=== PATIENT | female | born 1970 | race Two or more races ===

== ENCOUNTER 2021-05-26 12:11 | Outpatient (REF) | payer OTHER, SELFPAY | END 2021-05-26 12:12 | disposition home or self-care (01) | LOC: HO.LAB 12:11 | PROVIDERS: PCP Internal Medicine; Visit Provider Internal Medicine | DX: Z20.822 Contact with and (suspected) exposure to COVID-19 (principal) | CPT/HCPCS: U0003; U0005 ==

== ENCOUNTER 2021-08-31 08:51 | Outpatient (REF) | payer OTHER, SELFPAY ==
--- NOTE | ~2021-08-31 | XR_ITS ---
EXAMINATION: BILATERAL KNEE X-RAY CLINICAL INFORMATION: Bilateral knee pain COMPARISON: None TECHNIQUE: 2 views of each knee FINDINGS: Right: Bone alignment is normal. No fracture or dislocation is seen. Joint spaces are normal. There is a small osteophyte at the quadriceps tendon insertion to the patella. Left knee: Bone alignment is normal. No fracture or dislocation is seen. Joint spaces are normal. There is no joint effusion. XR/XR knee LT 2V IMPRESSION: Right knee: Small osteophyte at the quadriceps tendon insertion to the patella otherwise unremarkable exam. Left knee: Unremarkable exam.
--- NOTE | ~2021-08-31 | XR_ITS ---
EXAMINATION: BILATERAL KNEE X-RAY CLINICAL INFORMATION: Bilateral knee pain COMPARISON: None TECHNIQUE: 2 views of each knee FINDINGS: Right: Bone alignment is normal. No fracture or dislocation is seen. Joint spaces are normal. There is a small osteophyte at the quadriceps tendon insertion to the patella. Left knee: Bone alignment is normal. No fracture or dislocation is seen. Joint spaces are normal. There is no joint effusion. XR/XR knee RT 2V IMPRESSION: Right knee: Small osteophyte at the quadriceps tendon insertion to the patella otherwise unremarkable exam. Left knee: Unremarkable exam.
--- NOTE | ~2021-08-31 | XR_ITS ---
EXAMINATION: XR CHEST CLINICAL INFORMATION: Chest pain COMPARISON: None TECHNIQUE: 2 views of the chest were obtained. FINDINGS: The cardiac and mediastinal contours are normal. The lungs are clear. There is no pleural effusion or pneumothorax. There are mild degenerative changes of the spine. XR/XR chest 2V IMPRESSION: Unremarkable examination.
[2021-08-31 09:09] LABS: MANUAL DIFF FLAG NO
[2021-08-31 09:36] LABS: Basophils Percent Auto 0.4 % (0-2); Eosinophils Absolute Auto 0.3 X10*3/uL (0.0-0.4); Eosinophils Percent Auto 3.1 % (0-4); Hematocrit 38.2 % (37.0-47.0); Hemoglobin 12.2 g/dl (12.0-16.0); Imm Gran Abs Auto 0.02 X10*3/uL (0.00-0.03); Imm Gran Pct Auto 0.2 % (0.0-0.4); Lymphocytes Absolute Auto 2.7 X10*3/uL (1.2-4.9); Lymphocytes Percent Auto 29.8 % (20-40); Mean Corpuscular HGB Conc 31.9 g/dl (31.0-35.0); Mean Corpuscular Hemoglobin 25.1 pg (27.0-33.0); Mean Corpuscular Volume 78.6 fL (80.0-98.0); Monocytes Absolute Auto 0.6 X10*3/uL (0.1-1.2); Monocytes Percent Auto 6.7 % (2-11); Neutrophils Absolute Auto 5.4 x10*3/uL (2.0-8.3); Neutrophils Percent Auto 59.8 % (45-73); Platelet Count 343 X10*3/uL (160-400); Red Blood Count 4.86 X10*6/uL (4.20-5.50); Red Cell Distribution Width 13.2 % (11.0-16.0); White Blood Count 9.1 X10*3/uL (4.8-10.8)
[2021-08-31 09:40] LABS: Alanine Aminotransferase 19 U/L (0-31); Albumin Level 4.6 g/dL (3.5-5.0); Alkaline Phosphatase 91 U/L (39-117); Anion Gap 13 (12-20); Aspartate Amino Transferase 22 U/L (5-31); Bilirubin Total 0.4 mg/dL (0.0-1.0); Blood Urea Nitrogen 9 mg/dL (9-16); Calcium 9.7 mg/dL (8.4-10.2); Carbon Dioxide 26 mmol/L (22-29); Chloride 109 mmol/L (96-108); Cholesterol 214 mg/dL; Estimated Glomerular Filt Rate > 60; Glucose Fasting 109 mg/dL (60-99); HDL Cholesterol 45 mg/dL; LDL Cholesterol Calculated 148 mg/dl; Potassium 3.7 mmol/L (3.3-5.1); Sodium 144 mmol/L (135-145); Total Protein 7.4 g/dL (6.5-8.0); Triglycerides 108 mg/dL
[2021-08-31 09:53] LABS: Estimated Average Glucose 120 mg/dL; Hemoglobin A1c % 5.8 %
[2021-08-31 12:37] LABS: Creatinine Urine 110.13 mg/dL
[2021-08-31 12:43] LABS: Microalbum/Creatinine Ratio Ur 83.5 ug/mg cr
[2021-09-04 12:41] LABS: Vitamin D 25-OH, D2 <4 ng/mL; Vitamin D 25-OH, D3 17 ng/mL; Vitamin D 25-OH, Total 17 ng/mL (30-100)
== END 2021-08-31 08:52 | disposition home or self-care (01) ==
LOC: HO.LAB 08:51
PROVIDERS: Nurse Practitioner Family; Visit Provider Internal Medicine
DX: R07.89 Other chest pain (principal); M25.562 Pain in left knee; M25.561 Pain in right knee; D64.9 Anemia, unspecified; E11.610 Type 2 diabetes mellitus with diabetic neuropathic arthropathy; E78.5 Hyperlipidemia, unspecified; E55.9 Vitamin D deficiency, unspecified
CPT/HCPCS: 36415; 71046; 73560; 80053; 80061; 82043; 82306; 83036; 85025

== ENCOUNTER 2021-12-21 09:17 | Outpatient (REF) | payer OTHER, SELFPAY ==
--- NOTE | 2021-12-21 09:22 | ECG_ITS ---
Test Reason : R07.9 Blood Pressure : / mmHG Vent. Rate : 073 BPM Atrial Rate : 073 BPM P-R Int : 134 ms QRS Dur : 088 ms QT Int : 382 ms P-R-T Axes : 055 046 031 degrees QTc Int : 420 ms Normal sinus rhythm Normal ECG No previous ECGs available Referred By: Desiree Greene Electronically Signed By:Darrell Guerrier
[2021-12-21 10:55] LABS: Alanine Aminotransferase 27 U/L (0-31); Albumin Level 4.7 g/dL (3.5-5.0); Alkaline Phosphatase 105 U/L (39-117); Anion Gap 12 (12-20); Aspartate Amino Transferase 25 U/L (5-31); Bilirubin Total 0.3 mg/dL (0.0-1.0); Blood Urea Nitrogen 14 mg/dL (9-16); Calcium 10.1 mg/dL (8.4-10.2); Carbon Dioxide 28 mmol/L (22-29); Chloride 108 mmol/L (96-108); Cholesterol 159 mg/dL; Estimated Glomerular Filt Rate > 60; Glucose Fasting 108 mg/dL (60-99); HDL Cholesterol 39 mg/dL; LDL Cholesterol Calculated 101 mg/dl; Potassium 4.4 mmol/L (3.3-5.1); Sodium 144 mmol/L (135-145); Total Protein 7.7 g/dL (6.5-8.0); Triglycerides 98 mg/dL
[2021-12-21 11:20] LABS: Creatinine Urine 146.52 mg/dL; Microalbum/Creatinine Ratio Ur 13.6 ug/mg cr
[2021-12-25 15:32] LABS: Vitamin D 25-OH, D2 <4 ng/mL; Vitamin D 25-OH, D3 23 ng/mL; Vitamin D 25-OH, Total 23 ng/mL (30-100)
== END 2021-12-21 09:18 | disposition home or self-care (01) ==
LOC: HO.LAB 09:17
PROVIDERS: PCP Internal Medicine; Visit Provider Internal Medicine
DX: E11.610 Type 2 diabetes mellitus with diabetic neuropathic arthropathy (principal); R07.9 Chest pain, unspecified; E55.9 Vitamin D deficiency, unspecified; E78.5 Hyperlipidemia, unspecified
CPT/HCPCS: 36415; 80053; 80061; 82043; 82306; 93005

== ENCOUNTER 2022-05-16 09:25 | Outpatient (REF) | payer OTHER, SELFPAY ==
[2022-05-16 11:28] LABS: Alanine Aminotransferase 24 U/L (0-31); Albumin Level 4.5 g/dL (3.5-5.0); Alkaline Phosphatase 126 U/L (39-117); Anion Gap 12 (12-20); Aspartate Amino Transferase 21 U/L (5-31); Bilirubin Total 0.4 mg/dL (0.0-1.0); Blood Urea Nitrogen 14 mg/dL (9-16); Calcium 9.5 mg/dL (8.4-10.2); Carbon Dioxide 28 mmol/L (22-29); Chloride 106 mmol/L (96-108); Cholesterol 161 mg/dL; Estimated Glomerular Filt Rate > 60; Glucose Fasting 129 mg/dL (60-99); HDL Cholesterol 42 mg/dL; LDL Cholesterol Calculated 87 mg/dl; Potassium 4.1 mmol/L (3.3-5.1); Sodium 142 mmol/L (135-145); Total Protein 7.1 g/dL (6.5-8.0); Triglycerides 160 mg/dL
[2022-05-16 11:41] LABS: Creatinine Urine 132.06 mg/dL; Microalbum/Creatinine Ratio Ur 10.6 ug/mg cr
[2022-05-16 11:52] LABS: Vitamin D 25-OH Total 36.5 ng/mL (>30)
== END 2022-05-16 09:26 | disposition home or self-care (01) ==
LOC: HO.LAB 09:25
PROVIDERS: PCP Internal Medicine; Visit Provider Internal Medicine
DX: E11.610 Type 2 diabetes mellitus with diabetic neuropathic arthropathy (principal); E78.5 Hyperlipidemia, unspecified; E55.9 Vitamin D deficiency, unspecified
CPT/HCPCS: 36415; 80053; 80061; 82043; 82306

== ENCOUNTER 2022-09-06 11:10 | Outpatient (REF) | payer OTHER, SELFPAY ==
[2022-09-06 12:36] LABS: Creatinine Urine 186.41 mg/dL; Microalbum/Creatinine Ratio Ur 11.8 ug/mg cr
[2022-09-06 13:03] LABS: Alanine Aminotransferase 27 U/L (0-31); Albumin Level 4.5 g/dL (3.5-5.0); Alkaline Phosphatase 109 U/L (39-117); Anion Gap 12 (12-20); Aspartate Amino Transferase 20 U/L (5-31); Bilirubin Total 0.7 mg/dL (0.0-1.0); Blood Urea Nitrogen 10 mg/dL (9-16); Calcium 9.6 mg/dL (8.4-10.2); Carbon Dioxide 28 mmol/L (22-29); Chloride 106 mmol/L (96-108); Cholesterol 152 mg/dL; Estimated Glomerular Filt Rate > 60; Glucose Fasting 111 mg/dL (60-99); HDL Cholesterol 32 mg/dL; LDL Cholesterol Calculated 90 mg/dl; Potassium 4.1 mmol/L (3.3-5.1); Sodium 142 mmol/L (135-145); Total Protein 6.9 g/dL (6.5-8.0); Triglycerides 151 mg/dL; Vitamin D 25-OH Total 34.8 ng/mL (>30)
== END 2022-09-06 11:11 | disposition home or self-care (01) ==
LOC: HO.LAB 11:10
PROVIDERS: PCP Internal Medicine; Visit Provider Internal Medicine
DX: E78.5 Hyperlipidemia, unspecified (principal); E55.9 Vitamin D deficiency, unspecified; E11.610 Type 2 diabetes mellitus with diabetic neuropathic arthropathy
CPT/HCPCS: 36415; 80053; 80061; 82043; 82306

== ENCOUNTER 2022-09-20 09:56 | Outpatient (REF) | payer OTHER, SELFPAY ==
--- NOTE | ~2022-09-20 | XR_ITS ---
EXAMINATION: XR BILATERAL AP KNEE STANDING XR RIGHT KNEE XR LEFT KNEE CLINICAL INFORMATION: Bilateral primary osteoarthritis of knee. COMPARISON: None TECHNIQUE: Bilateral AP knee standing. 3 views each knee. FINDINGS: BILATERAL AP KNEE STANDING: There is maintained medial and lateral compartment joint space without bony erosive changes. No loose bodies seen. The soft tissues are normal. RIGHT KNEE: Minimal reduction the patellofemoral compartment joint space with anterior superior patellar enthesophyte is noted. No loose bodies, abnormal spur, joint effusion or bony erosive changes seen. LEFT KNEE: There is loss of patellofemoral compartment joint space. The medial and lateral compartment joint space is preserved. No bony erosive changes, loose bodies or joint effusion seen. The soft tissues are normal. XR/XR knee RT 3V IMPRESSION: 1. Mild degenerative changes patellofemoral compartment both knees. No visible acute fracture, dislocation or subluxation seen. 2. There is anterior superior patellar enthesophyte right knee.
--- NOTE | ~2022-09-20 | XR_ITS ---
EXAMINATION: XR BILATERAL AP KNEE STANDING XR RIGHT KNEE XR LEFT KNEE CLINICAL INFORMATION: Bilateral primary osteoarthritis of knee. COMPARISON: None TECHNIQUE: Bilateral AP knee standing. 3 views each knee. FINDINGS: BILATERAL AP KNEE STANDING: There is maintained medial and lateral compartment joint space without bony erosive changes. No loose bodies seen. The soft tissues are normal. RIGHT KNEE: Minimal reduction the patellofemoral compartment joint space with anterior superior patellar enthesophyte is noted. No loose bodies, abnormal spur, joint effusion or bony erosive changes seen. LEFT KNEE: There is loss of patellofemoral compartment joint space. The medial and lateral compartment joint space is preserved. No bony erosive changes, loose bodies or joint effusion seen. The soft tissues are normal. XR/XR knee standing BI IMPRESSION: 1. Mild degenerative changes patellofemoral compartment both knees. No visible acute fracture, dislocation or subluxation seen. 2. There is anterior superior patellar enthesophyte right knee.
--- NOTE | ~2022-09-20 | XR_ITS ---
EXAMINATION: XR BILATERAL AP KNEE STANDING XR RIGHT KNEE XR LEFT KNEE CLINICAL INFORMATION: Bilateral primary osteoarthritis of knee. COMPARISON: None TECHNIQUE: Bilateral AP knee standing. 3 views each knee. FINDINGS: BILATERAL AP KNEE STANDING: There is maintained medial and lateral compartment joint space without bony erosive changes. No loose bodies seen. The soft tissues are normal. RIGHT KNEE: Minimal reduction the patellofemoral compartment joint space with anterior superior patellar enthesophyte is noted. No loose bodies, abnormal spur, joint effusion or bony erosive changes seen. LEFT KNEE: There is loss of patellofemoral compartment joint space. The medial and lateral compartment joint space is preserved. No bony erosive changes, loose bodies or joint effusion seen. The soft tissues are normal. XR/XR knee LT 3V IMPRESSION: 1. Mild degenerative changes patellofemoral compartment both knees. No visible acute fracture, dislocation or subluxation seen. 2. There is anterior superior patellar enthesophyte right knee.
== END 2022-09-20 09:57 | disposition home or self-care (01) ==
LOC: HO.XRAY 09:56
PROVIDERS: PCP Internal Medicine; Referring Provider Internal Medicine; Visit Provider Student in an Organized Health Care Education/Training Program
DX: M17.0 Bilateral primary osteoarthritis of knee (principal)
CPT/HCPCS: 73562; 73564; 73565; 99202

== ENCOUNTER → 2022-10-31 10:46 | Outpatient (BNVA) | payer OTHER, SELFPAY | PROVIDERS: PCP Internal Medicine; Visit Provider Student in an Organized Health Care Education/Training Program | DX: M17.0 Bilateral primary osteoarthritis of knee (principal); M79.7 Fibromyalgia | CPT/HCPCS: 99212 ==

== ENCOUNTER 2023-04-25 14:16 | Outpatient (REF) | payer OTHER, SELFPAY ==
--- NOTE | ~2023-04-25 | MM_ITS ---
EXAMINATION: MM SCREENING DIGITAL BREAST TOMOSYNTHESIS, BILATERAL CLINICAL INFORMATION: Screening. Asymptomatic. The lifetime risk of breast cancer based on the Tyrer-Cuzick Model is 9.9%. COMPARISON: Mammography: This study is compared with prior exams dating back to TECHNIQUE: Digital breast tomosynthesis is performed in both the craniocaudal and mediolateral oblique views along with computer-aided detection (CAD). Synthesized 2D images are generated from the tomosynthesis. FINDINGS: There are scattered areas of fibroglandular density (ACR BI-RADS breast composition Category b). There are grouped calcifications in the posterior nipple line the right breast. These occur in the anterior half of the breast. In the left breast, there are no significant masses, abnormal calcifications, or other abnormalities. MM/MM tomosynthesis screening BI IMPRESSION: Calcifications of the right breast warrant additional mammographic imaging magnification. No mammographic signs of malignancy left breast. ASSESSMENT: BI-RADS BI-RADS 0 - Incomplete: Needs additional Imaging. RECOMMENDATION: Additional views of the right breast Radiology department staff will contact the patient for additional imaging. Additional Imaging required This examination should not preclude the clinical evaluation of a suspicious palpable abnormality. This patient's information was entered into a reminder system with a target due date for their next mammogram.
== END 2023-04-25 14:17 | disposition home or self-care (01) ==
LOC: HO.MAMMO 14:16
PROVIDERS: Visit Provider Internal Medicine
DX: Z12.31 Encounter for screening mammogram for malignant neoplasm of breast (principal)
CPT/HCPCS: 77063; 77067

== ENCOUNTER → 2023-04-25 14:45 | Outpatient (BNV) | payer OTHER, SELFPAY | PROVIDERS: Visit Provider Radiology Diagnostic Radiology | DX: Z12.31 Encounter for screening mammogram for malignant neoplasm of breast (principal) | CPT/HCPCS: 77063; 77067 ==

== ENCOUNTER 2023-05-04 09:54 | Outpatient (REF) | payer OTHER, SELFPAY ==
[2023-05-04 11:36] LABS: Alanine Aminotransferase 21 U/L (0-31); Albumin Level 4.5 g/dL (3.5-5.0); Alkaline Phosphatase 90 U/L (39-117); Anion Gap 11 (12-20); Aspartate Amino Transferase 22 U/L (5-31); Bilirubin Total 0.7 mg/dL (0.0-1.0); Blood Urea Nitrogen 9 mg/dL (9-16); Calcium 9.8 mg/dL (8.4-10.2); Carbon Dioxide 29 mmol/L (22-29); Chloride 106 mmol/L (96-108); Cholesterol 139 mg/dL; Estimated Glomerular Filt Rate > 60; Glucose Fasting 113 mg/dL (60-99); HDL Cholesterol 46 mg/dL; LDL Cholesterol Calculated 77 mg/dl; Potassium 4.1 mmol/L (3.3-5.1); Sodium 142 mmol/L (135-145); Total Protein 7.3 g/dL (6.5-8.0); Triglycerides 82 mg/dL
[2023-05-04 11:51] LABS: Vitamin D 25-OH Total 24.4 ng/mL (>30)
[2023-05-04 12:06] LABS: Creatinine Urine 220.18 mg/dL; Microalbum/Creatinine Ratio Ur 9.9 ug/mg cr
== END 2023-05-04 09:55 | disposition home or self-care (01) ==
LOC: HO.LAB 09:54
PROVIDERS: PCP Internal Medicine; Visit Provider Internal Medicine
DX: E78.5 Hyperlipidemia, unspecified (principal); E11.9 Type 2 diabetes mellitus without complications; E55.9 Vitamin D deficiency, unspecified
CPT/HCPCS: 36415; 80053; 80061; 82043; 82306

== ENCOUNTER 2023-06-13 08:53 | Outpatient (REF) | payer OTHER, SELFPAY ==
--- NOTE | ~2023-06-13 | MM_ITS ---
EXAMINATION: MM DIAGNOSTIC DIGITAL MAMMOGRAPHY, RIGHT CLINICAL INFORMATION: Diagnostic follow-up for calcifications seen right breast, upper slightly inner quadrant, middle one third. COMPARISON: Mammography: 04/25/2023. 04/02/2020, 02/03/2019, 04/02/2017. TECHNIQUE: Digital mammography is performed in spot magnification right CC and ML views along with computer-aided detection (CAD). FINDINGS: There are scattered areas of fibroglandular density (ACR BI-RADS breast composition Category b). Within the central one third, slightly upper, slightly medial aspect right breast, there are loosely grouped predominantly punctate calcifications without significant pleomorphism, branching, or casting. These have a probably benign morphology, and 6 month interval follow-up right breast magnification views recommended to ensure stability. Results were provided to the patient at time of visit by the technologist. MM/MM diagnostic mammo unilat RT IMPRESSION: Probably benign right breast calcifications as detailed, for which six-month interval follow-up right breast magnification views are recommended. ASSESSMENT: BI-RADS BI-RADS 3 - Probably benign finding(s) - 6 month follow-up suggested RECOMMENDATION: 6 Month F/U This patient's information was entered into a reminder system with a target due date for their next mammogram.
== END 2023-06-13 08:54 | disposition home or self-care (01) ==
LOC: HO.MAMMO 08:53
PROVIDERS: Visit Provider Internal Medicine
DX: R92.1 Mammographic calcification found on diagnostic imaging of breast (principal)
CPT/HCPCS: 77062; 77065

== ENCOUNTER → 2023-06-13 09:00 | Outpatient (BNV) | payer OTHER, SELFPAY | PROVIDERS: Visit Provider Radiology Diagnostic Radiology | DX: R92.1 Mammographic calcification found on diagnostic imaging of breast (principal) | CPT/HCPCS: 77065 ==

== ENCOUNTER 2023-07-05 09:51 | Outpatient (AMB) | payer OTHER, SELFPAY ==
--- NOTE | 2023-07-05 09:59 | MHC.OFFVIS ---
Intake Vital Signs 07/05/23 10:01 Height 5 ft 3 in Weight 163 lb 12.855 oz BMI 29.0 BP 116/68 Blood Pressure Location Rt brachial Position Sitting Pulse 65 Pulse Source Pulse Oximeter Temp 97.1 F Temp Source Skin Pulse Oximetry (%) 98 Intake Visit Reasons: FM/OA Intake Note: Pt seen today for FM/OA follow up. Cyber Intelligence Analyst Required: Yes Accompanied by: Spouse Allergies tramadol Allergy (Intermediate, Verified 07/05/23 10:03) tachycardia Medication List - Last Reconciled 07/05/23 by Radha Anderson MD atorvastatin 40 mg PO BEDTIME 90 days bisacodyl (Dulcolax (bisacodyl)) 10 mg (2 x 5 mg) PO ONCE 1 day blood-glucose meter ([employer] [place] Lite kit) As directed bupropion HCl 150 mg PO QAM cane As directed clonazepam 2 mg PO BID PRN cyclobenzaprine 10 mg PO BEDTIME PRN 30 days diclofenac sodium 1% 4 grams topical QID duloxetine 30 mg PO DAILY 90 days fexofenadine-pseudoephedrine 60-120 mg ER 1 tab PO Q12H PRN 30 days ibuprofen 800 mg PO DAILY PRN lemborexant (Dayvigo) 10 mg PO DAILY lidocaine 5% 1 appl topical BID PRN lurasidone 80 mg PO DAILY nystatin 1 appl topical DAILY 30 days polyethylene glycol 3350 (Miralax) 17 grams PO DAILY ramelteon 8 mg PO BEDTIME HPI HPI Comments History of Present Illness Details 53-year-old female with fibromyalgia and osteoarthritis returns for follow-up. Patient states that both her knees hurt. Worse on the left. States that last week her knees were swollen for 1 day. Improved with resting and ibuprofen 600 mg t.i.d.. Initial history: This is a 52-year-old female with a past medical history of anxiety, depression, dyslipidemia, fibromyalgia presents for evaluation of knee pain. Patient was referred for physical therapy for bilateral knee osteoarthritis last visit but she states nobody contacted her. She states that her bilateral knee pain is better, Voltaren gel is helping. Continues to have diffuse pain. She has difficulty falling and staying asleep. [facility] Medical History Right knee pain Hospital discharge follow-up Left sided sciatica Hypovitaminosis D Chest pain Hyperlipidemia LDL goal <100 Left knee pain Chest wall pain Mild major depression, single episode Insomnia Fall (on)(from) incline, subsequent encounter COVID-19 Anxiety and depression Arthritis Diabetes Sinusitis nasal Surgical History History of hysterectomy History of tonsillectomy Family History Father Diabetes mellitus Mother Diabetes mellitus Uterine cancer Son No problems noted. Son No problems noted. Son No problems noted. Daughter No problems noted. Social History Housing: Apartment Alcohol intake: current Alcohol intake frequency: holidays/special occasions only Alcohol type: beer Patient Tobacco Use Status: Former Tobacco user Tobacco use type: Cigarette e-Cigarette/Vaping Use: Never Used Second Hand Smoke Exposure: No service: No Current occupational status: unemployed Current occupational exposures/hazards: No Cognitive needs: No Hearing needs: No Vision needs: Yes Review of Systems Musc Reports myalgias, Reports arthralgias, Reports joint swelling and Reports stiffness Physical Exam Vital Signs: Last Vital Signs Temp 97.1 F 07/05/23 10:01 Pulse 65 07/05/23 10:01 BP 116/68 07/05/23 10:01 Pulse Ox 98 07/05/23 10:01 BMI result Body Mass Index 29.0 Const General: cooperative, healthy appearing, comfortable, no acute distress and well developed Nutritional Appearance: obese Orientation/consciousness: patient oriented x3 Limitations: no limitations HEENT Head: Yes normocephalic and Yes atraumatic Mouth: moist mucous membranes Resp Effort & Inspection: normal respiratory effort and able to speak in complete sentences Neuro General: patient oriented x3 Extrem Other: Osteoarthritic changes of both hands with Heberden's and Ana Maria's nodes Bilateral 1st CMC joint tenderness Right knee pain with full flexion Left knee pain with minimal flexion Diffuse fibromyalgia tender points Normal nailfold capillaroscopy Results Reviewed Results Reviewed: Bilateral knee x-rays 08/2022 IMPRESSION: ? 1.? Mild degenerative changes patellofemoral compartment both knees. No visible acute fracture, dislocation or subluxation seen. ? 2.? There is anterior superior patellar enthesophyte right knee Assessment & Plan Assessment & Plan (1) Bilateral primary osteoarthritis of knee: Code(s): M17.0 - Bilateral primary osteoarthritis of knee Plan: This is a 52-year-old female with the past medical history of anxiety, depression, dyslipidemia, fibromyalgia who presents for follow-up of bilateral knee OA. Patient states that her left knee pain is worse. She takes ibuprofen 600 mg 3 times a day. I discussed with patient that long-term use of systemic NSAIDs is associated with multiple toxicities such as cardiovascular, nephro toxicity and GI toxicity. Advised patient to try using Tylenol Arthritis as much as possible, Voltaren gel. Use ibuprofen only sparingly. I offered patient a steroid injection for relief but she refused. She also refused physical therapy. I suggested quadriceps strengthening exercises at home Follow-up in 6 months Plan I spent 16 minutes reviewing patient's chart, evaluating patient, , counseling patient and documenting in the chart Coding Level of Care Code Est Pt Level 3 (54695) Diagnoses Bilateral primary osteoarthritis of knee M17.0
[2023-07-05 10:01] VITALS: BP 116/68; PULSE 65; TEMP 36.2; O2SAT 98; BMI 29.0
== END 2023-07-05 10:27 | disposition home or self-care (01) ==
PROVIDERS: PCP Internal Medicine; Visit Provider Student in an Organized Health Care Education/Training Program
DX: M17.0 Bilateral primary osteoarthritis of knee (principal)
CPT/HCPCS: 99213

== ENCOUNTER → 2023-07-05 09:51 | Outpatient (BNVA) | payer OTHER, SELFPAY | PROVIDERS: PCP Internal Medicine; Visit Provider Student in an Organized Health Care Education/Training Program | DX: M17.0 Bilateral primary osteoarthritis of knee (principal) | CPT/HCPCS: 99212 ==

== ENCOUNTER 2023-08-22 12:22 | Outpatient (AMB) | payer OTHER, SELFPAY ==
[2023-08-22 12:46] VITALS: BP 110/70; PULSE 63; O2SAT 99; BMI 28.9
--- NOTE | 2023-08-22 12:46 | MHC.PC.OV ---
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 Accompanied by: Daughter Allergies tramadol Allergy (Intermediate, Verified 08/22/23 12:59) tachycardia Medication List - Last Reconciled 08/22/23 by Desiree Greene MD atorvastatin 40 mg PO BEDTIME 90 days bisacodyl (Dulcolax (bisacodyl)) 10 mg (2 x 5 mg) PO ONCE 1 day blood-glucose meter ([employer] [place] Lite kit) As directed bupropion HCl 150 mg PO QAM cane As directed clonazepam 2 mg PO BID PRN cyclobenzaprine 10 mg PO BEDTIME PRN 30 days diclofenac sodium 1% 4 grams topical QID duloxetine 30 mg PO DAILY 90 days fexofenadine-pseudoephedrine 60-120 mg ER 1 tab PO Q12H PRN 30 days ibuprofen 800 mg PO DAILY PRN lemborexant (Dayvigo) 10 mg PO DAILY lidocaine 5% 1 appl topical BID PRN lurasidone 80 mg PO DAILY nystatin 1 appl topical DAILY 30 days polyethylene glycol 3350 (Miralax) 17 grams PO DAILY ramelteon 8 mg PO BEDTIME Tobacco use date assessed: 11/23/22 Dental Screening Dental Screen Date: 08/22/23 Did you have a dental visit in the last 12 months?: No Did you have a dental problem in the last 6 months where you did not have access to dental care?: No Was dental information given to patient?: Patient has dentist HPI HPI Comments History of Present Illness Details This is a 53-year-old female with diabetes mellitus type 2, hyperlipidemia, mild major depression and anxiety that comes today for follow-up on her conditions. Last A1c was within goal and blood glucose at home ranges from 110 to 120. LDL close to goal. Depression and anxiety stable with medications. No chest pain or shortness of breath. [facility] Medical History (Updated 08/22/23 @ 13:22 by Desiree Greene MD) Right knee pain Hospital discharge follow-up Left sided sciatica Hypovitaminosis D Chest pain Hyperlipidemia LDL goal <100 Left knee pain Chest wall pain Mild major depression, single episode Insomnia Fall (on)(from) incline, subsequent encounter COVID-19 Anxiety and depression Arthritis Diabetes Sinusitis nasal Surgical History History of hysterectomy History of tonsillectomy Family History Father Diabetes mellitus Mother Diabetes mellitus Uterine cancer Son No problems noted. Son No problems noted. Son No problems noted. Daughter No problems noted. Social History Housing: Apartment Alcohol intake: current Alcohol intake frequency: holidays/special occasions only Alcohol type: beer Patient Tobacco Use Status: Former Tobacco user Tobacco use type: Cigarette e-Cigarette/Vaping Use: Never Used Second Hand Smoke Exposure: No service: No Current occupational status: unemployed Current occupational exposures/hazards: No Cognitive needs: No Hearing needs: No Vision needs: Yes Questionnaire Thrive Questionnaire Date Thrive assessed: 11/23/22 QUEENIE-7 AMB Questionnaire QUEENIE-7 Date QUEENIE - 7 assessed: 11/23/22 Source: Developed by Drs. Paul Nieto, Selena Isaac, James Richardson and colleagues, with an educational abdulaziz from [employer] Review of Systems Const All systems reviewed & are unremarkable except as noted in HPI and below Eyes Reports no additional complaints, Denies change in vision and Denies other visual disturbances Card Denies chest pain at rest, Denies chest pain with activity, Denies edema, Denies irregular heart rhythm, Denies claudication, Denies dyspnea, Denies dyspnea on exertion, Denies orthopnea, Denies paroxysmal nocturnal dyspnea and Denies slow heart rate Resp Denies cough, Denies dyspnea and Denies dyspnea on exertion GI Denies abdominal pain, Denies change in bowel habits, Denies excessive flatus, Denies nausea and Denies vomiting Denies urinary incontinence, Denies urinary hesitancy and Denies urinary urgency Musc Denies abnormal gait, Denies atrophy, Denies deformity and Denies limited range of motion Skin/Breast Denies bleeding lesions, Denies changing lesions and Denies rash Neuro Denies abnormal gait and Denies lack of coordination Physical exam (Primary Care) Vital Signs: Last Vital Signs Pulse 63 11/01/23 12:46 BP 110/70 08/22/23 12:46 Pulse Ox 99 08/22/23 12:46 Oxygen Delivery Method Room Air 08/22/23 12:46 BMI result Body Mass Index 28.9 Tobacco/Smoking Status: Tobacco use Status Tobacco use date assessed 11/23/22 08/22/23 12:49 Patient Tobacco Use Status Former Tobacco user 08/22/23 12:49 Tobacco use type Cigarette 08/22/23 12:49 e-Cigarette/Vaping Use Never Used 08/22/23 12:49 Thrive Assessment: Date of Thrive Assessment Date Thrive assessed 11/23/22 08/22/23 12:49 Eyes General: appearance normal, both eyes and all related structures Eyelids: Yes eyelids normal Conjunctivae: conjunctivae normal Neck Neck: Yes normal visual inspection and Yes supple Resp Effort & Inspection: normal respiratory effort Auscultation: clear to auscultation bilaterally Cardio Jugular venous distension: no JVD Rate: regular rate Rhythm: regular rhythm Heart sounds: S1 normal heart sound present and S2 normal heart sound present Extrem General: Yes full ROM Office Procedures Flu Questionnaire Does the patient have a severe egg allergy?: No Does the patient have severe life threatening allergies?: No Does the patient have a fever or illness today?: No Has the patient ever had Guillain-Ewing Syndrome?: No Has the patient ever had any past reaction to a flu shot?: No Results AMB Hemoglobin A1c AMB Hemoglobin A1c 5.9 % Last Edit by ROSA Dale on 08/22/23 13:07 Immunizations flu vacc [id number] 6mos up(PF) 60 mcg(15 mcgx4)/0.5 mL IM syringe Performing Provider: Desiree Greene MD [facility] Administered by: ROSA Dale on 08/22/23 13:11 Dose Route Admin Location Dispensed Lot Number Expiration Date NDC Television Installer 0.5 mL IM Right Deltoid 0.5 mL [id number] 04/20/24 [id number] [facility] VIS Given Date VIS Provided VIS Publication Date 08/22/23 Single Vaccine 21 Eligibility Eligibility Date Funding Source Not VFC Eligible 08/22/23 Private Results Reviewed Results Reviewed: Laboratory Last Values Hgb A1c (Clinic) 5.9 % (4.0-6.0) 08/22/23 12:55 Assessment and Plan Assessment & Plan (1) Diabetes: Code(s): E11.9 - Type 2 diabetes mellitus without complications Qualifiers: Diabetes mellitus type: type 2 Diabetes mellitus snf insulin use: without terminal operator use Diabetes mellitus complication status: with diabetic arthropathy Qualified Code(s): E11.610 - Type 2 diabetes mellitus with diabetic neuropathic arthropathy Plan: Continue low-carbohydrate diet. A1c goal is equal or less than 7%. (2) Mild major depression, single episode: Code(s): F32.0 - Major depressive disorder, single episode, mild Plan: Continue bupropion. (3) Hyperlipidemia LDL goal <70: Code(s): E78.5 - Hyperlipidemia, unspecified Plan: Continue statins. LDL goal is less than 70. (4) QUEENIE (generalized anxiety disorder): Code(s): F41.1 - Generalized anxiety disorder Plan: Continue benzodiazepines as needed. Orders: Orders Comprehensive [place]. Panel Fast Today E11.610 - Type 2 diabetes mellitus with diabetic neuropathic arthropathy AMB Hemoglobin A1c Today E11.9 - Type 2 diabetes mellitus without complications Influenza [id number] Immunization Today Z23 - Encounter for immunization Lipid Panel Today E78.5 - Hyperlipidemia, unspecified Microalbumin, Random (w Creat) Today E11.9 - Type 2 diabetes mellitus without complications Vitamin D 25-OH Total Today E55.9 - Vitamin D deficiency, unspecified Referrals Cologuard Test Z12.11 - Encounter for screening for malignant neoplasm of colon, Z12.12 - Encounter for screening for malignant neoplasm of rectum Coding Level of Care Code Est Pt Level 4 (80047) Diagnoses Type 2 diabetes mellitus with diabetic neuropathic arthropathy, without long-term current use of insulin E11.610 Diabetes mellitus type: type 2 Diabetes mellitus snf insulin use: without terminal operator use Diabetes mellitus complication status: with diabetic arthropathy Mild major depression, single episode F32.0 Hyperlipidemia LDL goal <70 E78.5 UQEENIE (generalized anxiety disorder) F41.1 Time Spent (min) 23
== END 2023-08-22 13:10 | disposition home or self-care (01) ==
PROVIDERS: PCP Internal Medicine; Visit Provider Internal Medicine
DX: E11.610 Type 2 diabetes mellitus with diabetic neuropathic arthropathy (principal); F32.0 Major depressive disorder, single episode, mild; E78.5 Hyperlipidemia, unspecified; F41.1 Generalized anxiety disorder; Z23 Encounter for immunization; E55.9 Vitamin D deficiency, unspecified
CPT/HCPCS: 83036; 90471; 90686; 99214

== ENCOUNTER 2023-12-18 13:20 | Outpatient (REF) | payer OTHER, SELFPAY ==
--- NOTE | ~2023-12-18 | MM_ITS ---
EXAMINATION: MM DIAGNOSTIC DIGITAL BREAST TOMOSYNTHESIS, RIGHT CLINICAL INFORMATION: 6 month follow-up right breast calcifications, slightly inner upper quadrant, middle one third. COMPARISON: Mammography: 06/13/2023, 04/25/2023, 05/02/2020, 02/03/2019. TECHNIQUE: Digital breast tomosynthesis is performed in both the craniocaudal and mediolateral oblique views along with computer-aided detection (CAD). Synthesized 2D images are generated from the tomosynthesis. In addition to standard views, spot magnification 2-D CC and ML views were also obtained of the right breast. FINDINGS: There are scattered areas of fibroglandular density (ACR BI-RADS breast composition Category b). Within the central one third, slightly upper, slightly medial aspect right breast, there are stable and completely unchanged loosely grouped predominantly punctate calcifications without significant pleomorphism, branching, or casting. These have a probably benign morphology, and additional 6 month interval follow-up right breast magnification views recommended to ensure stability. Otherwise, there are no additional abnormal findings in the right breast. Stable lateral nodule asymmetry is unchanged on the CC projection. MM/MM tomosynthesis diagnostic RT IMPRESSION: No findings suspicious for malignancy in the right breast. Calcifications in the slightly upper inner quadrant, middle one third right breast, are entirely unchanged and remain probably benign. Additional six-month interval follow-up diagnostic mammography recommended to ensure stability. ASSESSMENT: BI-RADS BI-RADS 3 - Probably benign finding(s) - 6 month follow-up suggested RECOMMENDATION: 6 Month F/U Results were provided to the patient at time of visit by the technologist. This patient's information was entered into a reminder system with a target due date for their next mammogram.
== END 2023-12-18 13:21 | disposition home or self-care (01) ==
LOC: HO.MAMMO 13:20
PROVIDERS: PCP Internal Medicine; Visit Provider Internal Medicine
DX: R92.1 Mammographic calcification found on diagnostic imaging of breast (principal)
CPT/HCPCS: 77061; 77065

== ENCOUNTER → 2023-12-18 13:30 | Outpatient (BNV) | payer OTHER, SELFPAY | PROVIDERS: PCP Internal Medicine; Visit Provider Radiology Diagnostic Radiology | DX: R92.1 Mammographic calcification found on diagnostic imaging of breast (principal) | CPT/HCPCS: 77061; 77065 ==

== ENCOUNTER 2023-12-26 09:42 | Outpatient (AMB) | payer OTHER, SELFPAY ==
[2023-12-26 09:53] VITALS: BP 108/70; PULSE 77; TEMP 36.1; O2SAT 96; BMI 27.7
--- NOTE | 2023-12-26 09:53 | MHC.OFFVIS ---
Intake Vital Signs 12/26/23 09:53 Height 5 ft 3 in Weight 156 lb 8.451 oz BMI 27.7 BP 108/70 Blood Pressure Location Rt brachial Position Sitting Pulse 77 Pulse Source Pulse Oximeter Temp 97 F Temp Source Skin Pulse Oximetry (%) 96 Oxygen Delivery Method Room Air Intake Visit Reasons: FM/OA Intake Note: Patient last seen 07/05/23 presents today for follow up. Human Resources Project Manager Required: Yes Human Resources Project Manager Language: Elementary Instructional Coach Name: Daughter Information Interpreted: clinical only Accompanied by: Daughter Allergies tramadol Allergy (Intermediate, Verified 12/26/23 09:57) tachycardia Medication List - Last Reconciled 12/26/23 by Radha Anderson MD atorvastatin 40 mg PO BEDTIME 90 days bisacodyl (Dulcolax (bisacodyl)) 10 mg (2 x 5 mg) PO ONCE 1 day blood-glucose meter (FreeStyle [place] Lite kit) As directed bupropion HCl 150 mg PO QAM cane As directed clonazepam 2 mg PO BID PRN cyclobenzaprine 10 mg PO BEDTIME PRN 30 days diclofenac sodium 1% 4 grams topical QID duloxetine 30 mg PO DAILY 90 days fexofenadine-pseudoephedrine 60-120 mg ER 1 tab PO Q12H PRN 30 days ibuprofen 800 mg PO DAILY PRN lemborexant (Dayvigo) 10 mg PO DAILY lidocaine 5% 1 appl topical BID PRN lurasidone 80 mg PO DAILY nystatin 1 appl topical DAILY 30 days polyethylene glycol 3350 (Miralax) 17 grams PO DAILY ramelteon 8 mg PO BEDTIME HPI HPI Comments History of Present Illness Details 53-year-old female with fibromyalgia and osteoarthritis returns for follow-up. Her knees are feeling better as she lost about 10 lb over the last few months with watching what she eats. She continues to have diffuse pain everywhere. She continues to take ibuprofen daily for her diffuse pain. Initial history: This is a 52-year-old female with a past medical history of anxiety, depression, dyslipidemia, fibromyalgia presents for evaluation of knee pain. Patient was referred for physical therapy for bilateral knee osteoarthritis last visit but she states nobody contacted her. She states that her bilateral knee pain is better, Voltaren gel is helping. Continues to have diffuse pain. She has difficulty falling and staying asleep. [facility] Medical History Right knee pain Hospital discharge follow-up Left sided sciatica Hypovitaminosis D Chest pain Hyperlipidemia LDL goal <100 Left knee pain Chest wall pain Mild major depression, single episode Insomnia Fall (on)(from) incline, subsequent encounter COVID-19 Anxiety and depression Arthritis Diabetes Sinusitis nasal Surgical History History of hysterectomy History of tonsillectomy Family History Father Diabetes mellitus Mother Diabetes mellitus Uterine cancer Son No problems noted. Son No problems noted. Son No problems noted. Daughter No problems noted. Social History Housing: Apartment Alcohol intake: current Alcohol intake frequency: holidays/special occasions only Alcohol type: beer Patient Tobacco Use Status: Former Tobacco user Tobacco use type: Cigarette e-Cigarette/Vaping Use: Never Used Second Hand Smoke Exposure: No service: No Current occupational status: unemployed Current occupational exposures/hazards: No Cognitive needs: No Hearing needs: No Vision needs: Yes Review of Systems Musc Reports myalgias and Reports arthralgias Physical Exam Vital Signs: Last Vital Signs Temp 97 F 12/26/23 09:53 Pulse 77 12/26/23 09:53 BP 108/70 12/26/23 09:53 Pulse Ox 96 12/26/23 09:53 Oxygen Delivery Method Room Air 12/26/23 09:53 BMI result Body Mass Index 27.7 Const General: cooperative, healthy appearing, comfortable, no acute distress and well developed Nutritional Appearance: obese Orientation/consciousness: patient oriented x3 Limitations: no limitations HEENT Head: Yes normocephalic and Yes atraumatic Mouth: moist mucous membranes Resp Effort & Inspection: normal respiratory effort and able to speak in complete sentences Neuro General: patient oriented x3 Extrem Other: Osteoarthritic changes of both hands with Heberden's and Ana Maria's nodes No knee pain with full flexion and extension bilaterally Diffuse fibromyalgia tender points Normal nailfold capillaroscopy Results Reviewed Results Reviewed: Bilateral knee x-rays 08/2022 IMPRESSION: ? 1.? Mild degenerative changes patellofemoral compartment both knees. No visible acute fracture, dislocation or subluxation seen. ? 2.? There is anterior superior patellar enthesophyte right knee Assessment & Plan Assessment & Plan (1) Bilateral primary osteoarthritis of knee: Code(s): M17.0 - Bilateral primary osteoarthritis of knee Plan: This is a 53-year-old female with the past medical history of anxiety, depression, dyslipidemia, fibromyalgia who presents for follow-up of bilateral knee OA. Her knee arthritis is improving as patient lost about 10 lb over the last few months with watching what she eats. She continues to take ibuprofen daily for her diffuse pain Discussed with patient long-term side effects of NSAIDs and to only use it sparingly. Follow-up as needed Plan I spent 16 minutes reviewing patient's chart, evaluating patient, , counseling patient and documenting in the chart Coding Level of Care Code Est Pt Level 3 (22676) Diagnoses Bilateral primary osteoarthritis of knee M17.0
== END 2023-12-26 10:23 | disposition home or self-care (01) ==
PROVIDERS: PCP Internal Medicine; Visit Provider Student in an Organized Health Care Education/Training Program
DX: M17.0 Bilateral primary osteoarthritis of knee (principal)
CPT/HCPCS: 99213

== ENCOUNTER → 2023-12-26 09:42 | Outpatient (BNVA) | payer OTHER, SELFPAY | PROVIDERS: PCP Internal Medicine; Visit Provider Student in an Organized Health Care Education/Training Program | DX: M17.0 Bilateral primary osteoarthritis of knee (principal) | CPT/HCPCS: 99212 ==

== ENCOUNTER 2024-04-18 11:35 | Outpatient (REF) | payer OTHER, SELFPAY ==
[2024-04-20 22:23] LABS: TS Negative Control Passed; TS Panel A 0; TS Panel B 0; TS Positive Control Passed; TSpotTB Negative (Negative)
== END 2024-04-18 11:36 | disposition home or self-care (01) ==
LOC: HO.LAB 11:35
PROVIDERS: PCP Internal Medicine; Visit Provider Internal Medicine
DX: Z11.1 Encounter for screening for respiratory tuberculosis (principal)
CPT/HCPCS: 36415; 86481

== ENCOUNTER 2024-06-09 14:59 | Outpatient (AMB) | payer OTHER, SELFPAY ==
--- NOTE | 2024-06-09 15:06 | A.OFFPC_ITS ---
Vital Signs 06/09/24 15:11 Height 5 ft 3 in Weight 156 lb 8.451 oz BMI 27.7 BP 112/70 Blood Pressure Location Lt brachial Position Sitting Intake Visit Reasons: PE- NEEDS A1C Business Analyst Consultant Required: No Accompanied by: Self / Same As Patient Allergies tramadol Allergy (Intermediate, Verified 06/09/24 15:16) tachycardia Medication List - Last Reconciled 06/09/24 by Desiree Greene MD atorvastatin 40 mg PO BEDTIME 90 days bisacodyl (Dulcolax (bisacodyl)) 10 mg (2 x 5 mg) PO ONCE 1 day blood-glucose meter (FreeStyle [place] Lite kit) As directed bupropion HCl XL 150 mg PO QAM cane As directed clonazepam 2 mg PO BID PRN cyclobenzaprine 10 mg PO BEDTIME PRN 30 days diclofenac sodium 1% 4 grams topical QID fexofenadine-pseudoephedrine 60-120 mg ER 1 tab PO Q12H PRN 30 days ibuprofen 800 mg PO DAILY PRN lemborexant (Dayvigo) 10 mg PO DAILY lidocaine 5% 1 appl topical BID PRN lurasidone 80 mg PO DAILY polyethylene glycol 3350 (Miralax) 17 grams PO DAILY Tobacco use date assessed: 06/09/24 Dental Screening Dental Screen Date: 06/09/24 Did you have a dental visit in the last 12 months?: Yes Did you have a dental problem in the last 6 months where you did not have access to dental care?: No Was dental information given to patient?: Patient has dentist HPI HPI Comments History of Present Illness Details This is a 53-year-old female with mild major depression and diabetes mellitus type 2 that comes for her physical exam. Depression is follow by Psychiatry. A1c within goal. Diabetic eye exam done 2023. Mammogram done 2023. No need for Pap smear due to hysterectomy. Declines colonoscopy and would be willing to do Cologuard. [facility] Medical History Right knee pain Hospital discharge follow-up Left sided sciatica Hypovitaminosis D Chest pain Hyperlipidemia LDL goal <100 Left knee pain Chest wall pain Mild major depression, single episode Insomnia Fall (on)(from) incline, subsequent encounter COVID-19 Anxiety and depression Arthritis Diabetes Sinusitis nasal Surgical History History of hysterectomy History of tonsillectomy Family History Father Diabetes mellitus Mother Diabetes mellitus Uterine cancer Son No problems noted. Son No problems noted. Son No problems noted. Daughter No problems noted. Social History Housing: Apartment Alcohol intake: current Alcohol intake frequency: holidays/special occasions only Alcohol type: beer Patient Tobacco Use Status: Former Tobacco user Tobacco use type: Cigarette e-Cigarette/Vaping Use: Never Used Second Hand Smoke Exposure: No service: No Current occupational status: unemployed Current occupational exposures/hazards: No Cognitive needs: No Hearing needs: No Vision needs: Yes Questionnaire PHQ-9 Over the last 2 weeks, how often have you been bothered by any of the following problems? 1. Little interest or pleasure in doing things: more than half the days 2. Feeling down, depressed, or hopeless: several days 3. Trouble falling or staying asleep, or sleeping too much: nearly every day 4. Feeling tired or having little energy: nearly every day 5. Poor appetite or overeating: more than half the days 6. Feeling bad about yourself - or that you are a failure or have let yourself or your family down: several days 7. Trouble concentrating on things, such as reading the newspaper or watching television: not at all 8. Moving or speaking so slowly that other people could have noticed. Or the opposite - being so fidgety or restless that you have been moving around a lot more than usual: several days 9. Thoughts that you would be better off or of hurting yourself in some way: not at all Total score: 13 Depression Screening Interpretation: Positive Depression Screening Follow-up: Existing condition, In treatment, Community Mental Health Worker F/U and Follow- up Visit Requested Depression Screening Done: Yes 31849 - PHQ-9 Billing: Yes Source: Developed by Drs. Paul Nieto, Selena Isaac, James Richardson and colleagues, with an educational abdulaziz from [employer]. Thrive Questionnaire Date Thrive assessed: 06/09/24 I am a: Patient What is your living situation today?: I have a steady place to live Within the past 12 months, did the food you bought not last and you didn't have the money to get more?: Never true Within the past 12 months, did you worry whether your food would run out before you got money to buy more?: Never true Do you have trouble paying for medicines?: No Do you have trouble getting transportation to medical appointments?: No Do you have trouble paying your heating and electricity bill?: No Do you have trouble taking care of your child, family member or friend?: No Do you have trouble with day-to-day activities such as bathing, preparing meals, shopping, managing finances, etc.?: No Are you currently unemployed and looking for a job?: No Are you interested in more education?: No Please select the resources that you would like help with: None Currently or been in a relationship where the following occur: No concerns reported THRIVE Score: 0 AUDIT C Alcohol Use Questionnaire (AUDIT-C) 1. How often do you have a drink containing alcohol?: Never Total Score: 0 Score Reviewed/Action Taken: No QUEENIE-7 AMB Questionnaire QUEENIE-7 Date QUEENIE - 7 assessed: 06/09/24 Feeling nervous, anxious, or on edge: 1 = Several days Not being able to stop or control worryin = Not at all Worrying too much about different things: 1 = Several days Trouble relaxin = Several days Being so restless that it is hard to sit still: 1 = Several days Becoming easily annoyed or irritable: 1 = Several days Feeling afraid as if something awful might happen: 1 = Several days Total QUEENIE-7 score (0-4 normal; 5-9 mild; 10-14 moderate; 15-21 severe): 6 Source: Developed by Drs. Paul Nieto, Selena Isaac, James Richardson and colleagues, with an educational abdulaziz from [employer]. QUEENIE-7 Assessment Billing QUEENIE-7 Assessment Tool: QUEENIE-7 Assessment 29410 Review of Systems Const All systems reviewed & are unremarkable except as noted in HPI and below Card Denies chest pain at rest, Denies chest pain with activity, Denies edema, Denies irregular heart rhythm, Denies claudication, Denies dyspnea, Denies dyspnea on exertion, Denies orthopnea, Denies paroxysmal nocturnal dyspnea and Denies slow heart rate Resp Denies cough, Denies dyspnea and Denies dyspnea on exertion GI Denies abdominal pain, Denies change in bowel habits, Denies excessive flatus, Denies nausea and Denies vomiting Denies urinary incontinence, Denies urinary hesitancy and Denies urinary urgency Physical exam (Primary Care) Vital Signs: Last Vital Signs BP 112/70 06/09/24 15:11 BMI result Body Mass Index 27.7 Tobacco/Smoking Status: Tobacco use Status Tobacco use date assessed 06/09/24 06/09/24 15:13 Patient Tobacco Use Status Former Tobacco user 06/09/24 15:13 Tobacco use type Cigarette 06/09/24 15:13 e-Cigarette/Vaping Use Never Used 06/09/24 15:13 PHQ-9: PHQ-9 Score PHQ-9: Total score 13 06/09/24 15:13 Depression Screening Interpretation: Positive Depression Screening Follow-up: Existing condition, In treatment, Community Mental Health Worker F/U and Follow- up Visit Requested Thrive Assessment: Date of Thrive Assessment Date Thrive assessed 06/09/24 06/09/24 15:13 Currently or been in a relationship where the following occur: No concerns reported HENMS Head: Yes normal to inspection, Yes normocephalic and Yes atraumatic Ears: external ears normal Eyes General: appearance normal, both eyes and all related structures Eyelids: Yes eyelids normal Conjunctivae: conjunctivae normal Neck Neck: Yes normal visual inspection and Yes supple Resp Effort & Inspection: normal respiratory effort Auscultation: clear to auscultation bilaterally Cardio Jugular venous distension: no JVD Rate: regular rate Rhythm: regular rhythm Heart sounds: S1 normal heart sound present and S2 normal heart sound present GI Inspection: Yes normal to inspection Palpation (GI): Soft to palpation and nontender Auscultation: normal bowel sounds Skin General skin exam: no rashes or lesions noted Neuro General: no focal motor deficits Extrem General: Yes full ROM Psych Appearance: grossly normal Results AMB Hemoglobin A1c AMB Hemoglobin A1c 5.7 % Last Edit by RSOA Dale on 06/09/24 15:1 5 Results Reviewed Results Reviewed: Laboratory Last Values Hgb A1c (Clinic) 5.7 % (4.0-6.0) 06/09/24 15:13 Assessment and Plan Assessment & Plan (1) Physical exam: Code(s): Z00.00 - Encounter for general adult medical examination without abnormal findings Plan: Repeat in a year. (2) Mild major depression, single episode: Code(s): F32.0 - Major depressive disorder, single episode, mild Plan: Follow-up with psychiatry. (3) Diabetes: Code(s): E11.9 - Type 2 diabetes mellitus without complications Qualifiers: Diabetes mellitus type: type 2 Diabetes mellitus skilled nursing insulin use: without skilled nursing use Diabetes mellitus complication status: with diabetic arthropathy Qualified Code(s): E11.610 - Type 2 diabetes mellitus with diabetic neuropathic arthropathy Plan: Continue metformin. A1c goal is equal or less than 7%. Orders: Orders Microalbumin, Random (w Creat) Today E11.9 - Type 2 diabetes mellitus without complications AMB Hemoglobin A1c Today E11.610 - Type 2 diabetes mellitus with diabetic neuropathic arthropathy Lipid Panel Today E78.5 - Hyperlipidemia, unspecified Vitamin D 25-OH Total Today E55.9 - Vitamin D deficiency, unspecified Comprehensive [place]. Panel Fast Today E11.610 - Type 2 diabetes mellitus with diabetic neuropathic arthropathy Medications: New metformin 500 mg PO DAILY 90 days 90 tabs 0RF E11.610 - Type 2 diabetes mellitus with diabetic neuropathic arthropathy Refilled diclofenac sodium 1% 4 grams topical QID 100 grams 1RF cyclobenzaprine 10 mg PO BEDTIME 30 days PRN 30 tabs 0RF for muscle spasm ibuprofen 800 mg PO DAILY PRN 30 tabs 1RF for fever Review Patient declined Colonoscopy: 06/09/24 Coding Level of Care Code Est Pt Prev Care 40-64y(62029) Diagnoses Physical exam Z00.00 Mild major depression, single episode F32.0 Type 2 diabetes mellitus with diabetic neuropathic arthropathy, without long- term current use of insulin E11.610 Diabetes mellitus type: type 2 Diabetes mellitus terminal worker insulin use: without skilled nursing use Diabetes mellitus complication status: with diabetic arthropathy Additional Codes QUEENIE-7 Assessment Billing - QUEENIE-7 Assessment Tool: QUEENIE-7 Assessment 94890 ([id number]) Time Spent (min) 31
[2024-06-09 15:11] VITALS: BP 112/70; BMI 27.7
== END 2024-06-09 15:27 | disposition home or self-care (01) ==
PROVIDERS: PCP Internal Medicine; Visit Provider Internal Medicine
DX: Z00.00 Encounter for general adult medical examination without abnormal findings (principal); F32.0 Major depressive disorder, single episode, mild; E11.610 Type 2 diabetes mellitus with diabetic neuropathic arthropathy
CPT/HCPCS: 83036; 99396

== ENCOUNTER 2024-07-15 14:00 | Outpatient (REF) | payer OTHER, SELFPAY ==
--- NOTE | ~2024-07-15 | MM_ITS ---
EXAMINATION: MM DIAGNOSTIC DIGITAL BREAST TOMOSYNTHESIS, BILATERAL CLINICAL INFORMATION: 6 month follow-up right breast calcifications central one third, slightly upper, slightly medial aspect, probably benign. Patient also due for yearly. COMPARISON: Mammography: 12/18/2023, 06/13/2023, 04/25/2023, 04/02/2020, and 02/03/2019. TECHNIQUE: Digital breast tomosynthesis is performed in both the craniocaudal and mediolateral oblique views along with computer-aided detection (CAD). Synthesized 2D images are generated from the tomosynthesis. In addition to standard views, 2-D spot magnification right LM and CC views were obtained. FINDINGS: There are scattered areas of fibroglandular density (ACR BI-RADS breast composition Category b). Punctate loosely grouped calcifications in the right breast slightly upper inner quadrant middle one third are entirely unchanged, with no aggressive features. These remain probably benign. One-year follow-up recommended. Otherwise, there are no suspicious masses, suspicious grouped calcifications, or areas of architectural distortion in either breast. The overall parenchymal pattern is stable from prior exams. There is no skin or axillary abnormality. MM/MM tomosynthesis diagnostic BI IMPRESSION: -There are no findings in either breast suspicious for malignancy. -Calcifications in the right breast are entirely unchanged and remain probably benign. One-year follow-up diagnostic views recommended when the patient is due for bilateral screening. ASSESSMENT: BI-RADS BI-RADS 3 - Probably benign finding(s) - 12 month follow-up suggested RECOMMENDATION: 12 month diagnostic follow up Results were provided to the patient at time of visit by the technologist. This patient's information was entered into a reminder system with a target due date for their next mammogram. Electronically signed by: Sherman Nielson MD 07/15/2024 02:53 PM EDT
== END 2024-07-15 14:01 | disposition home or self-care (01) ==
LOC: HO.MAMMO 14:00
PROVIDERS: PCP Internal Medicine; Visit Provider Internal Medicine
DX: R92.1 Mammographic calcification found on diagnostic imaging of breast (principal)
CPT/HCPCS: 77062; 77066

== ENCOUNTER → 2024-07-15 14:30 | Outpatient (BNV) | payer OTHER, SELFPAY | PROVIDERS: PCP Internal Medicine; Visit Provider Radiology Diagnostic Radiology | DX: R92.1 Mammographic calcification found on diagnostic imaging of breast (principal) | CPT/HCPCS: 77062; 77066 ==

== ENCOUNTER 2024-10-31 09:25 | Outpatient (REF) | payer OTHER, SELFPAY ==
[2024-10-31 12:13] LABS: Alanine Aminotransferase 47 U/L (0-31); Albumin Level 4.5 g/dL (3.5-5.0); Alkaline Phosphatase 85 U/L (39-117); Anion Gap 11 (12-20); Aspartate Amino Transferase 50 U/L (5-31); Bilirubin Total 0.4 mg/dL (0.0-1.0); Blood Urea Nitrogen 10 mg/dL (9-16); Calcium 9.5 mg/dL (8.4-10.2); Carbon Dioxide 27 mmol/L (22-29); Chloride 109 mmol/L (96-108); Cholesterol 134 mg/dL (<200); Estimated Glomerular Filt Rate > 60; Glucose Fasting 101 mg/dL (60-99); HDL Cholesterol 47 mg/dL (>40); LDL Cholesterol Calculated 71 mg/dL (<100); Potassium 3.7 mmol/L (3.3-5.1); Sodium 143 mmol/L (135-145); Total Protein 7.4 g/dL (6.5-8.0); Triglycerides 84 mg/dL (<150); Vitamin D 25-OH Total 9.4 ng/mL (>30)
[2024-10-31 12:13] LABS: Creatinine Urine 157.57 mg/dL; Microalbum/Creatinine Ratio Ur 10.7 ug/mg cr (<30)
== END 2024-10-31 09:26 | disposition home or self-care (01) ==
LOC: HO.LAB 09:25
PROVIDERS: PCP Internal Medicine; Visit Provider Internal Medicine
DX: E55.9 Vitamin D deficiency, unspecified (principal); E11.9 Type 2 diabetes mellitus without complications; E78.5 Hyperlipidemia, unspecified; E11.610 Type 2 diabetes mellitus with diabetic neuropathic arthropathy
CPT/HCPCS: 36415; 80053; 80061; 82043; 82306; 82570

== ENCOUNTER 2025-05-19 14:59 | Outpatient (AMB) | payer OTHER, SELFPAY ==
--- NOTE | 2025-05-19 15:27 | A.OFFPC_ITS ---
Vital Signs 05/19/25 15:28 Height 5 ft 3 in Weight 182 lb BMI 32.2 BP 112/80 Blood Pressure Location Lt brachial Position Sitting Intake Visit Reasons: DM- A1C needed Intake Note: Patient here for a follow up DM Director Institution Required: No Accompanied by: Self / Same As Patient Allergies tramadol Allergy (Intermediate, Verified 05/19/25 15:54) tachycardia Medication List - Last Reconciled 05/19/25 by Desiree Greene MD atorvastatin 40 mg PO BEDTIME 90 days bisacodyl (Dulcolax (bisacodyl)) 10 mg (2 x 5 mg) PO ONCE 1 day blood-glucose meter (FreeStyle Hobson Lite kit) As directed bupropion HCl XL 150 mg PO QAM cane As directed cholecalciferol (vitamin D3) 50 mcg PO DAILY 90 days clonazepam 2 mg PO BID PRN cyclobenzaprine 10 mg PO BEDTIME PRN 30 days diclofenac sodium 1% 4 grams topical QID fexofenadine-pseudoephedrine 60-120 mg ER 1 tab PO Q12H PRN 30 days ibuprofen 800 mg PO DAILY PRN lemborexant (Dayvigo) 10 mg PO DAILY lidocaine 5% 1 appl topical BID PRN lurasidone 80 mg PO DAILY metformin 500 mg PO DAILY 90 days polyethylene glycol 3350 (Miralax) 17 grams PO DAILY Tobacco use date assessed: 05/19/25 Dental Screening Dental Screen Date: 05/19/25 Did you have a dental visit in the last 12 months?: No Did you have a dental problem in the last 6 months where you did not have access to dental care?: No Was dental information given to patient?: Patient has dentist HPI HPI Comments History of Present Illness Details The patient is a 54-year-old female presenting for a follow-up visit and preventative care, including discussion of upcoming physical examination and laboratory tests. The patient has a history of hypertension, currently well-controlled with a blood pressure reading of 112/80 mmHg. She is taking atorvastatin for cholesterol management, bupropion for depression, vitamin D, and clonazepam for anxiety. 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 She experiences constipation for which she uses MiraLAX, and she has a thumb c yst that was mentioned during the visit. Preventative care measures were discussed, including the need for a colon cancer screening with a stool test, which the patient has not yet completed due to a pprehension. [facility] Medical History (Updated 05/19/25 @ 20:19 by Desiree Greene MD) Right knee pain Hospital discharge follow-up Left sided sciatica Hypovitaminosis D Chest pain Hyperlipidemia LDL goal <100 Left knee pain Chest wall pain Mild major depression, single episode Insomnia Fall (on)(from) incline, subsequent encounter COVID-19 Anxiety and depression Arthritis Diabetes Sinusitis nasal Surgical History History of hysterectomy History of tonsillectomy Family History Father Diabetes mellitus Mother Diabetes mellitus Uterine cancer Son No problems noted. Son No problems noted. Son No problems noted. Daughter No problems noted. Social History Housing: Apartment Alcohol intake: current Alcohol intake frequency: holidays/special occasions only Alcohol type: beer Patient Tobacco Use Status: Former Tobacco user Tobacco use type: Cigarette e-Cigarette/Vaping Use: Never Used Second Hand Smoke Exposure: No service: No Current occupational status: unemployed Current occupational exposures/hazards: No Cognitive needs: No Hearing needs: No Vision needs: Yes Questionnaire PHQ-9 Over the last 2 weeks, how often have you been bothered by any of the following problems? 1. Little interest or pleasure in doing things: several days 2. Feeling down, depressed, or hopeless: several days 3. Trouble falling or staying asleep, or sleeping too much: several days 4. Feeling tired or having little energy: several days 5. Poor appetite or overeating: several days 6. Feeling bad about yourself - or that you are a failure or have let yourself or your family down: not at all 7. Trouble concentrating on things, such as reading the newspaper or watching television: not at all 8. Moving or speaking so slowly that other people could have noticed. Or the opposite - being so fidgety or restless that you have been moving around a lot more than usual: several days 9. Thoughts that you would be better off or of hurting yourself in some way: several days Total score: 7 Depression Screening Interpretation: Positive Depression Screening Follow-up: Existing condition and Follow-up Visit Requested Depression Screening Done: Yes 05745 - PHQ-9 Billing: Yes Source: Developed by Drs. Paul Nieto, Selena Isaac, James Richardson and colleagues, with an educational abdulaziz from [email or web address]. Thrive Questionnaire Date Thrive assessed: 05/19/25 I am a: Patient What is your living situation today?: I have a steady place to live Within the past 12 months, did the food you bought not last and you didn't have the money to get more?: Sometimes True Within the past 12 months, did you worry whether your food would run out before you got money to buy more?: Sometimes True Do you have trouble paying for medicines?: No Do you have trouble getting transportation to medical appointments?: Yes Do you have trouble paying your heating and electricity bill?: Yes Do you have trouble taking care of your child, family member or friend?: No Do you have trouble with day-to-day activities such as bathing, preparing meals, shopping, managing finances, etc.?: No Are you currently unemployed and looking for a job?: No Are you interested in more education?: No Please select the resources that you would like help with: Food, Transportation and Utilities Currently or been in a relationship where the following occur: No concerns reported THRIVE Score: 4 AUDIT C Alcohol Use Questionnaire (AUDIT-C) 1. How often do you have a drink containing alcohol?: Never Total Score: 0 Score Reviewed/Action Taken: No QUEENIE-7 AMB Questionnaire QUEENIE-7 Date QUEENIE - 7 assessed: 05/19/25 Feeling nervous, anxious, or on edge: 1 = Several days Not being able to stop or control worryin = Several days Worrying too much about different things: 1 = Several days Trouble relaxin = Several days Being so restless that it is hard to sit still: 1 = Several days Becoming easily annoyed or irritable: 1 = Several days Feeling afraid as if something awful might happen: 0 = Not at all Total QUEENIE-7 score (0-4 normal; 5-9 mild; 10-14 moderate; 15-21 severe): 6 Source: Developed by Drs. Paul Nieto, Selena Isaac, James Richardson and colleagues, with an educational abdulaziz from [email or web address]. QUEENIE-7 Assessment Billing QUEENIE-7 Assessment Tool: QUEENIE-7 Assessment 46253 Review of Systems Const All systems reviewed & are unremarkable except as noted in HPI and below Card Denies chest pain at rest, Denies chest pain with activity, Denies edema, Denies irregular heart rhythm, Denies claudication, Denies dyspnea, Denies dyspnea on exertion, Denies orthopnea, Denies paroxysmal nocturnal dyspnea and Denies slow heart rate Resp Denies cough, Denies dyspnea and Denies dyspnea on exertion GI Denies abdominal pain, Denies change in bowel habits, Denies excessive flatus, Denies nausea and Denies vomiting Denies urinary incontinence, Denies urinary hesitancy and Denies urinary urgency Musc Denies abnormal gait, Denies atrophy, Denies deformity and Denies limited range of motion Skin/Breast Denies bleeding lesions, Denies changing lesions and Denies rash Neuro Denies abnormal gait, Denies behavioral changes and Denies lack of coordination Psych Denies behavioral changes Physical exam (Primary Care) Vital Signs: Last Vital Signs BP 112/80 05/19/25 15:28 BMI result Body Mass Index 32.2 Tobacco/Smoking Status: Tobacco use Status Tobacco use date assessed 05/19/25 05/19/25 15:35 Patient Tobacco Use Status Former Tobacco user 05/19/25 15:35 Tobacco use type Cigarette 05/19/25 15:35 e-Cigarette/Vaping Use Never Used 05/19/25 15:35 PHQ-9: PHQ-9 Score PHQ-9: Total score 7 05/19/25 15:56 Depression Screening Interpretation: Positive Depression Screening Follow-up: Existing condition and Follow-up Visit Requested Thrive Assessment: Date of Thrive Assessment Date Thrive assessed 05/19/25 05/19/25 15:35 Currently or been in a relationship where the following occur: No concerns reported Resp Effort & Inspection: normal respiratory effort Auscultation: clear to auscultation bilaterally Cardio Jugular venous distension: no JVD Rate: regular rate Rhythm: regular rhythm Heart sounds: S1 normal heart sound present and S2 normal heart sound present Extrem General: Yes full ROM Results AMB Hemoglobin A1c AMB Hemoglobin A1c 6.0 % Last Edit by ROSA Dale on 05/19/25 15:4 0 Results Reviewed Results Reviewed: Laboratory Last Values Hgb A1c (Clinic) 6.0 % (4.0-6.0) 05/19/25 15:26 Coding Level of Care Code Est Pt Level 4 (91366) Complex EM visit Add On G2211 Diagnoses Mild major depression, single episode F32.0 QUEENIE (generalized anxiety disorder) F41.1 Hyperlipidemia LDL goal <70 E78.5 Type 2 diabetes mellitus with diabetic neuropathic arthropathy, without long- term current use of insulin E11.610 Diabetes mellitus type: type 2 Diabetes mellitus longterm insulin use: without longterm use Diabetes mellitus complication status: with diabetic arthropathy Chronic idiopathic constipation K59.04 Additional Codes QUEENIE-7 Assessment Billing - QUEENIE-7 Assessment Tool: QUEENIE-7 Assessment 34968 ([id number]) PHQ-9 - 80539 - PHQ-9 Billing: Yes ([id number]) Time Spent (min) 21 Assessment & Plan Assessment & Plan (1) Mild major depression, single episode: Code(s): F32.0 - Major depressive disorder, single episode, mild Category: Medical (2) QUEENIE (generalized anxiety disorder): Code(s): F41.1 - Generalized anxiety disorder Category: Medical (3) Hyperlipidemia LDL goal <70: Code(s): E78.5 - Hyperlipidemia, unspecified Category: Medical (4) Diabetes: Code(s): E11.9 - Type 2 diabetes mellitus without complications Category: Medical Qualifiers: Diabetes mellitus type: type 2 Diabetes mellitus longterm insulin use: without long filler cigar roller machine use Diabetes mellitus complication status: with diabetic arthropathy Qualified Code(s): E11.610 - Type 2 diabetes mellitus with diabetic neuropathic arthropathy (5) Chronic idiopathic constipation: Code(s): K59.04 - Chronic idiopathic constipation Category: Medical Plan The patient will continue with her current medication regimen, including atorvastatin for cholesterol, bupropion for depression, and clonazepam for anxiety. A colon cancer screening with a stool test will be sent to her, and she is encouraged to complete it with assistance if needed. Follow-up appointments will be scheduled to review laboratory results and ensure compliance with preventative care measures. Patient was informed and verbally consented to the use of an ambient scribe for clinic note documentation during this visit. Orders: Orders AMB Hemoglobin A1c Today E11.610 - Type 2 diabetes mellitus with diabetic neuropathic arthropathy Vitamin D 25-OH Total Today E55.9 - Vitamin D deficiency, unspecified Lipid Panel Today E78.5 - Hyperlipidemia, unspecified Microalbumin, Random (w Creat) Today R80.9 - Proteinuria, unspecified Comprehensive Conde. Panel Fast Today E78.5 - Hyperlipidemia, unspecified Referrals Cologuard Test Z12.11 - Encounter for screening for malignant neoplasm of colon, Z12.12 - Encounter for screening for malignant neoplasm of rectum Medications: Refilled ibuprofen 800 mg PO DAILY PRN 30 tabs 1RF for fever cyclobenzaprine 10 mg PO BEDTIME PRN 30 tabs 0RF for muscle spasm 30 days
[2025-05-19 15:28] VITALS: BP 112/80; BMI 32.2
--- OUTSIDE RECORDS SUMMARY | 2025-05-19 15:51 | XMS_ITS | Clinical Summary ---
Author Organization [facility] it Address [address] [place] [address] Care Team Providers Care Yield Improvement Engineer Name Role Phone Unavailable Primary Care Provider Unavailabl e Surgical History Surgery Date Site/Laterality Comments HYSTERECTOMY PROCEDURE: HISTORICAL HYSTERECTOMY TONSILLECTOMY ADENOIDECTOMY, BILATERAL MYRINGOTOMY AND TUBES PROCEDURE: RI TONSILLECTOMY & ADENOIDECTOMY <AGE 13 Social History Tobacco Use Types Packs/Day Years Used Date Smoking Tobacco: Never Alcohol Use Standard Drinks/Week Comments Not Currently 0 (1 standard drink = 0.6 oz pur e alcohol) Comments Unknown Sex and Gender Information Value Date Recorded Sex Assigned at Not on file Legal Sex Female 6:13 PM EST Gender Identity Not on file Sexual Orientation Not on file Obstetrics History Plan of Treatment Health Maintenance Due Date Last Done Comments Breast Cancer Screening 1971 DTaP,Tdap,and Td Vaccines (1 - Tdap) 1990 Hepatitis B Vaccines (1 of 3 - 19+ 3-dose series) 1990 Cervical Cancer Screening: P ap Smear 1992 Pneumococcal Vaccine: 50+ Ye ars (1 of 1 - PCV) 2021 Zoster Vaccines (1 of 2) 2021 Colorectal Cancer Screening: Colonoscopy 09/23/2022 HIV Screening 09/23/2022 Hepatitis C Screening 09/23/2022 Social Influencers of Health Screening 09/23/2022 COVID-19 Vaccine (1 - 2023-2 5 season) 2024 Depression Screening 10/22/2024 Influenza Vaccine (#1) 2025 HIB Vaccines Aged Out No longer eligi ble based on patient's age to complete this topic HPV Vaccines Aged Out No longer eligi ble based on patient's age to complete this topic Hepatitis A Vaccines Aged Out No long er eligible based on patient's age to complete this topic IPV Vaccines Aged Out No longer eligi ble based on patient's age to complete this topic MMR Vaccines Aged Out No longer eligi ble based on patient's age to complete this topic Meningococcal ACWY Vaccine Aged Out N o longer eligible based on patient's age to complete this topic Meningococcal B Vaccine Aged Out No l onger eligible based on patient's age to complete this topic RSV Immunization Patients Un roz 20 months Aged Out No longer eligible b ased on patient's age to complete this topic Varicella Vaccines Aged Out No longer eligible based on patient's age to complete this topic
== END 2025-05-19 16:03 | disposition home or self-care (01) ==
LOC: HO.HMCH 15:00
PROVIDERS: PCP Internal Medicine; Visit Provider Internal Medicine
DX: F32.0 Major depressive disorder, single episode, mild (principal); F41.1 Generalized anxiety disorder; E78.5 Hyperlipidemia, unspecified; E11.610 Type 2 diabetes mellitus with diabetic neuropathic arthropathy; K59.04 Chronic idiopathic constipation

== ENCOUNTER → 2025-05-19 14:59 | Outpatient (BNVA) | payer OTHER, SELFPAY | PROVIDERS: PCP Internal Medicine; Visit Provider Internal Medicine | DX: F32.0 Major depressive disorder, single episode, mild (principal); F41.1 Generalized anxiety disorder; E78.5 Hyperlipidemia, unspecified; E11.610 Type 2 diabetes mellitus with diabetic neuropathic arthropathy; K59.04 Chronic idiopathic constipation; I10 Essential (primary) hypertension; Z79.899 Other long term (current) drug therapy; Z13.31 Encounter for screening for depression; Z13.39 Encounter for screening examination for other mental health and behavioral disorders | CPT/HCPCS: 83036; 96127; 99212 ==

== ENCOUNTER 2025-06-25 11:55 | Outpatient (AMB) | payer OTHER, SELFPAY ==
[2025-06-25 12:01] VITALS: BP 128/82; PULSE 89; O2SAT 97; BMI 32.2
--- NOTE | 2025-06-25 12:01 | MHC.PC.OV ---
Vital Signs 06/25/25 12:01 Height 5 ft 3 in Weight 182 lb BMI 32.2 BP 128/82 Blood Pressure Location Lt brachial Position Sitting Pulse 89 Pulse Source Pulse Oximeter Pulse Oximetry (%) 97 Oxygen Delivery Method Room Air Intake Visit Reasons: Annual Exam Corrosion Control Technician Required: No Accompanied by: Self / Same As Patient Allergies tramadol Allergy (Intermediate, Verified 06/25/25 12:11) tachycardia Medication List - Last Reconciled 06/25/25 by Desiree Greene MD atorvastatin 40 mg PO BEDTIME 90 days bisacodyl (Dulcolax (bisacodyl)) 10 mg (2 x 5 mg) PO ONCE 1 day blood-glucose meter (FreeStyle [place] Lite kit) As directed bupropion HCl XL 150 mg PO QAM cane As directed cholecalciferol (vitamin D3) 50 mcg PO DAILY 90 days clonazepam 2 mg PO BID PRN cyclobenzaprine 10 mg PO BEDTIME PRN 30 days diclofenac sodium 1% 4 grams topical QID fexofenadine-pseudoephedrine 60-120 mg ER 1 tab PO Q12H PRN 30 days ibuprofen 800 mg PO DAILY PRN lemborexant (Dayvigo) 10 mg PO DAILY lidocaine 5% 1 appl topical BID PRN lurasidone 80 mg PO DAILY metformin 500 mg PO DAILY 90 days polyethylene glycol 3350 (Miralax) 17 grams PO DAILY Tobacco use date assessed: 05/19/25 Dental Screening Dental Screen Date: 05/19/25 HPI HPI Comments History of Present Illness Details The patient is a 54-year-old female presenting with a wellness check and management of chronic conditions. She has a history of diabetes mellitus, managed with metformin once daily, with a recent hemoglobin A1c of 6%, indicating good control. The patient also has hyperlipidemia, treated with atorvastatin, and reports no chest pain or dyspnea, with well-controlled LDL levels. She has a history of depression, managed with bupropion, and insomnia, for which she takes DayVigo at night. Additionally, she takes clonazepam and lurasidone as prescribed by her psychiatrist. The patient reports constipation, somewhat controlled with MiraLAX, and has a known allergy to tramadol causing tachycardia. Her family history includes diabetes in both parents, and she has a past history of smoking, though she no longer smokes. She occasionally consumes beer. - Pneumonia vaccination recommended due to diabetes - Eye examination last conducted in January - no need for Pap smear due to hysterectomy. - Tdap vaccine up-to-date. - Mammogram done less than a year ago. - will do Cologuard instead of colonoscopy. [facility] Medical History Right knee pain Hospital discharge follow-up Left sided sciatica Hypovitaminosis D Chest pain Hyperlipidemia LDL goal <100 Left knee pain Chest wall pain Mild major depression, single episode Insomnia Fall (on)(from) incline, subsequent encounter COVID-19 Anxiety and depression Arthritis Diabetes Sinusitis nasal Surgical History History of hysterectomy History of tonsillectomy Family History Father Diabetes mellitus Mother Diabetes mellitus Uterine cancer Son No problems noted. Son No problems noted. Son No problems noted. Daughter No problems noted. Social History Housing: Apartment Alcohol intake: current Alcohol intake frequency: holidays/special occasions only Alcohol type: beer Patient Tobacco Use Status: Former Tobacco user Tobacco use type: Cigarette e-Cigarette/Vaping Use: Never Used Second Hand Smoke Exposure: No service: No Current occupational status: unemployed Current occupational exposures/hazards: No Cognitive needs: No Hearing needs: No Vision needs: Yes Questionnaire PHQ-9 Over the last 2 weeks, how often have you been bothered by any of the following problems? 1. Little interest or pleasure in doing things: several days 2. Feeling down, depressed, or hopeless: several days 3. Trouble falling or staying asleep, or sleeping too much: several days 4. Feeling tired or having little energy: several days 5. Poor appetite or overeating: several days 6. Feeling bad about yourself - or that you are a failure or have let yourself or your family down: not at all 7. Trouble concentrating on things, such as reading the newspaper or watching television: not at all 8. Moving or speaking so slowly that other people could have noticed. Or the opposite - being so fidgety or restless that you have been moving around a lot more than usual: several days 9. Thoughts that you would be better off or of hurting yourself in some way: several days Total score: 7 Depression Screening Interpretation: Positive Depression Screening Follow-up: Existing condition, In treatment and Follow-up Visit Requested Depression Screening Done: Yes Source: Developed by Drs. Paul Nieto, Selena Isaac, James Richardson and colleagues, with an educational abdulaziz from [employer]. Thrive Questionnaire Date Thrive assessed: 05/19/25 AUDIT C Alcohol Use Questionnaire (AUDIT-C) 1. How often do you have a drink containing alcohol?: Never Total Score: 0 Score Reviewed/Action Taken: No QUEENIE-7 AMB Questionnaire QUEENIE-7 Date QUEENIE - 7 assessed: 05/19/25 Source: Developed by Drs. Paul Nieto, Selena Isaac, James Richardson and colleagues, with an educational abdulaziz from [employer]. Review of Systems Const All systems reviewed & are unremarkable except as noted in HPI and below ENT Denies change in voice, Denies nasal discharge and Denies sinus pain Card Denies chest pain at rest, Denies chest pain with activity, Denies edema, Denies irregular heart rhythm, Denies claudication, Denies dyspnea, Denies dyspnea on exertion, Denies orthopnea, Denies paroxysmal nocturnal dyspnea and Denies slow heart rate Resp Denies cough, Denies dyspnea and Denies dyspnea on exertion GI Denies abdominal pain, Denies change in bowel habits, Denies excessive flatus, Denies nausea and Denies vomiting Physical exam (Primary Care) Vital Signs: Last Vital Signs Pulse 89 06/25/25 12:01 BP 128/82 06/25/25 12:01 Pulse Ox 97 06/25/25 12:01 Oxygen Delivery Method Room Air 06/25/25 12:01 BMI result Body Mass Index 32.2 Tobacco/Smoking Status: Tobacco use Status Tobacco use date assessed 05/19/25 06/25/25 12:02 Patient Tobacco Use Status Former Tobacco user 06/25/25 12:02 Tobacco use type Cigarette 06/25/25 12:02 e-Cigarette/Vaping Use Never Used 06/25/25 12:02 PHQ-9: PHQ-9 Score PHQ-9: Total score 7 06/25/25 12:24 Depression Screening Interpretation: Positive Depression Screening Follow-up: Existing condition, In treatment and Follow-up Visit Requested Thrive Assessment: Date of Thrive Assessment Date Thrive assessed 05/19/25 06/25/25 12:02 HENMT Head: Yes normal to inspection, Yes normocephalic and Yes atraumatic Ears: external ears normal Eyes General: appearance normal, both eyes and all related structures Eyelids: Yes eyelids normal Conjunctivae: conjunctivae normal Neck Neck: Yes normal visual inspection and Yes supple Resp Effort & Inspection: normal respiratory effort Auscultation: clear to auscultation bilaterally Cardio Jugular venous distension: no JVD Rate: regular rate Rhythm: regular rhythm Heart sounds: S1 normal heart sound present and S2 normal heart sound present GI Inspection: Yes normal to inspection Palpation (GI): Soft to palpation and nontender Auscultation: normal bowel sounds Skin General skin exam: no rashes or lesions noted Neuro General: no focal motor deficits Extrem General: Yes full ROM Psych Appearance: grossly normal Immunizations pneumoc 20-carlos conj-dip cr(PF) 0.5 mL IM syringe Performing Provider: Desiree Greene MD [facility] Administered by: Cintia Savage CMA on 06/25/25 12:24 Dose Route Admin Location Dispensed Lot Number Expiration Date [facility] Pinmaker 0.5 mL IM Left Deltoid 0.5 mL [id number] 06/22/26 [employer] Total Dispensed Waste 0.5 mL 0 % VIS Given Date VIS Provided VIS Publication Date 06/25/25 Single Vaccine 25 Eligibility Eligibility Date Funding Source Not [facility] Eligible 06/25/25 Private Coding Level of Care Code Est Pt Prev Care 40-64y(42981) Diagnoses Physical exam Z00.00 Type 2 diabetes mellitus with diabetic neuropathic arthropathy, without long-term current use of insulin E11.610 Diabetes mellitus complication status: with diabetic arthropathy Diabetes mellitus manager long term care insulin use: without custodial use Diabetes mellitus type: type 2 Mild major depression, single episode F32.0 Assessment & Plan Assessment & Plan (1) Physical exam: Code(s): Z00.00 - Encounter for general adult medical examination without abnormal findings Category: Medical (2) Diabetes: Code(s): E11.9 - Type 2 diabetes mellitus without complications Category: Medical Qualifiers: Diabetes mellitus complication status: with diabetic arthropathy Diabetes mellitus custodial insulin use: without manager long term care use Diabetes mellitus type: type 2 Qualified Code(s): E11.610 - Type 2 diabetes mellitus with diabetic neuropathic arthropathy (3) Mild major depression, single episode: Code(s): F32.0 - Major depressive disorder, single episode, mild Category: Medical Plan Plan Patient was informed and verbally consented to the use of an ambient scribe for clinic note documentation during this visit. 1. Plan Patient was informed and verbally consented to the use of an ambient scribe for clinic note documentation during this visit. 1. Encounter for general adult medical examination without abnormal findings Z00.00 PCV20 today. Tdap up to date. No need for pap smear due to hysterectomy. Mammogram will be done this year. Do cologuard instead of colonoscopy. 2.Type 2 diabetes mellitus without complications E11.9 HCC 19 Diabetes mellitus is managed with metformin, with a recent hemoglobin A1c of 6% indicating good control. Pneumonia vaccination is recommended due to diabetes. 3. Major depressive disorder, recurrent, mild F33.0 HCC 59 Depression is managed with bupropion, and the patient also takes clonazepam and lurasidone as prescribed by her psychiatrist. Orders: Orders Comprehensive [place]. Panel Fast 6 Months E11.610 - Type 2 diabetes mellitus with diabetic neuropathic arthropathy Pneumococcal 20 Immunization Today Z23 - Encounter for immunization Lipid Panel 6 Months E78.5 - Hyperlipidemia, unspecified Microalbumin, Random (w Creat) 6 Months R80.9 - Proteinuria, unspecified Patient Instructions: - Continue taking metformin as prescribed to manage diabetes. - Maintain atorvastatin regimen for hyperlipidemia control. - Schedule and receive the pneumonia vaccination. - Use MiraLAX as needed for constipation.
--- OUTSIDE RECORDS SUMMARY | 2025-06-25 13:30 | XMS_ITS | Clinical Summary ---
[facility] Address [address] [place] [address] Care Team Providers Care Pet Technologist Name Role Phone Unavailable Primary Care Provider Unavailabl e Surgical History Surgery Date Site/Laterality Comments HYSTERECTOMY PROCEDURE: HISTORICAL HYSTERECTOMY TONSILLECTOMY ADENOIDECTOMY, BILATERAL MYRINGOTOMY AND TUBES PROCEDURE: IN TONSILLECTOMY & ADENOIDECTOMY <AGE 13 Social History [...]
== END 2025-06-25 12:29 | disposition home or self-care (01) ==
LOC: HO.HMCH 11:55
PROVIDERS: PCP Internal Medicine; Visit Provider Internal Medicine
DX: Z00.00 Encounter for general adult medical examination without abnormal findings (principal); E11.610 Type 2 diabetes mellitus with diabetic neuropathic arthropathy; F32.0 Major depressive disorder, single episode, mild; Z23 Encounter for immunization

== ENCOUNTER → 2025-06-25 11:55 | Outpatient (BNVA) | payer OTHER, SELFPAY | PROVIDERS: PCP Internal Medicine; Visit Provider Internal Medicine | DX: Z00.00 Encounter for general adult medical examination without abnormal findings (principal); E11.610 Type 2 diabetes mellitus with diabetic neuropathic arthropathy; E78.5 Hyperlipidemia, unspecified; F33.0 Major depressive disorder, recurrent, mild; G47.00 Insomnia, unspecified; K59.00 Constipation, unspecified; Z23 Encounter for immunization; Z79.84 Long term (current) use of oral hypoglycemic drugs; Z87.891 Personal history of nicotine dependence | CPT/HCPCS: 90471; 90677; 99396 ==

== ENCOUNTER 2025-07-16 12:57 | Outpatient (REF) | payer OTHER, SELFPAY ==
--- NOTE | ~2025-07-16 | MM_ITS ---
EXAMINATION(S): 1. MM DIAGNOSTIC DIGITAL BREAST TOMOSYNTHESIS, BILATERAL 2. Targeted ultrasound of the right breast 3. Targeted ultrasound of the left breast CLINICAL INFORMATION: This is 1 year follow-up for right breast calcifications located in the upper inner quadrant middle depth. These calcifications were first described in April 2023. COMPARISON: Comparison made to multiple prior, most recent July 15, 2024, and most remote April 02, 2017. Note that the additional studies from [facility] from 2019 and 2018 were uploaded after the completion of the current diagnostic study. TECHNIQUE: Digital breast tomosynthesis is performed in ML 90 degrees, mediolateral oblique and craniocaudal views along with computer-aided detection (CAD). Synthesized 2D images are generated from the tomosynthesis. Spot compression tomosynthesis were obtained. FINDINGS: BREAST COMPOSITION: There are scattered areas of fibroglandular density. RIGHT BREAST: -Previously suggested loosely grouped calcifications in the upper inner quadrant middle depth are unchanged from prior spot magnified compression views from May 2023. At this point, they can be considered a benign finding and no dedicated further imaging follow-up is needed. -Focal asymmetry in the upper inner quadrant at about 4 cm from the nipple (MLO 48/88, CC 33/77) appears pliable with spot compression (spot MLO 32/62). Targeted ultrasound of the right breast was performed at the location of the mammographic finding. The survey throughout the 12:00 to 4:00 axis did not reveal suspicious sonographic correlate. -No suspicious calcifications are seen. LEFT BREAST: -Focal asymmetry in the upper inner quadrant at approximately 4 cm from the nipple (MLO 57/97, CC 37/75 and ML 90 degrees 47/70). After upload of the prior images from [facility], it was noticed that this is unchanged from 2019. Targeted ultrasound of the left breast was performed at the location of the mammographic finding. The survey throughout the upper inner quadrant did not reveal suspicious sonographic correlate. -No suspicious calcifications are seen. MM/MM tomosynthesis diagnostic BI IMPRESSION: RIGHT BREAST: 1. Previously described loosely grouped calcifications in the upper inner quadrant, stable from May 2023, can now be considered a benign finding. No further dedicated imaging follow-up is needed. 2. Focal asymmetry in the upper inner quadrant at about 4 cm from the nipple, without sonographic correlate. Probably benign. A 6-month follow-up mammogram is recommended. LEFT BREAST: Benign, no mammographic evidence of malignancy. Normal interval follow-up is recommended in 12 months. ASSESSMENT: Category 3: Probably benign RECOMMENDATION: 6 Month F/U Results were provided to the patient at time of visit by the technologist. This patient's information was entered into a reminder system with a target due date for their next mammogram. Electronically signed by: Claire Kumar MD 07/20/2025 08:30 AM EDT
== END 2025-07-16 12:58 | disposition home or self-care (01) ==
LOC: HO.MAMMO 12:57
PROVIDERS: PCP Internal Medicine; Visit Provider Internal Medicine
DX: N64.89 Other specified disorders of breast (principal)
CPT/HCPCS: 76642; 77062; 77066

== ENCOUNTER → 2025-07-16 13:00 | Outpatient (BNV) | payer OTHER, SELFPAY | PROVIDERS: PCP Internal Medicine; Visit Provider Radiology Body Imaging | DX: R92.8 Other abnormal and inconclusive findings on diagnostic imaging of breast (principal) | CPT/HCPCS: 76642; 77062; 77066 ==